=== PATIENT | female | born 1975 | race Two or more races ===

== ENCOUNTER 2019-09-21 16:37 | Emergency (ER) | payer SELFPAY ==
[~2019-09-21] VITALS: Ht 165.1 cm; Wt 56.7 kg
[2019-09-21 16:37] VITALS: BP 110/80
[2019-09-21] MEDS ORDERED: Tetanus/Diptheria/Pertussis IM ONE (17:00)
[2019-09-21] MEDS ORDERED: Lidocaine 1% 10mg/ml/EPI 0.01mg/ml 30ml INJ ONE (17:00)
--- NOTE | 2019-09-21 17:04 | Emergency Room Report ---
History of Present Illness General Chief Complaint: Behavioral Complaint Source: Patient (Slade Donald MD) Present Illness HPI Disclaimer: Please note that this report is being documented using DRAGON technology. This can lead to erroneous entry secondary to incorrect interpretation by the dictating instrument. HPI: After a suicidal attempt. The patient took an unknown amount of Ambien and Xanax several hours prior to arrival. Cannot recall many tablets were in the bottles however police state that bottles were empty on their arrival. She also made a horizontal laceration across her right wrist using a kitchen knife. Bleeding stopped prior to arrival. Able to wrist and all digits. States this was a suicide attempt over severe depression symptoms. She lost her fianc 1 year ago today. She has been dealing with depression since. Cannot recall last tetanus. PMH: Depression PSH: Reviewed Allergies: Benadryl, escitalopram Social Hx: None reported COVID-19 risk:Contact w/high r: No COVID-19 risk:Travel to affect: No Has patient experienced gleason: No (Slade Donald MD) Allergies: Coded Allergies: DIPHENHYDRAMINE (Verified Allergy, Unknown, 09/21/19) ESCITALOPRAM (Verified Allergy, Unknown, 09/21/19) Patient History Last Menstrual Period: Aug 2019 Now: No : 0 Para: 0 (Slade Donald MD) Nursing Documentation-PMH History Of Psychiatric Problem: No - depression (Slaed Donald MD) Review of Systems All Other Systems: negative except mentioned in HPI (Slade Donald MD) Physical Exam Vital Signs Date Time Temp Pulse Resp B/P (MAP) Pulse Ox O2 Delivery O2 Flow Rate FiO2 09/21/19 16:28 98.4 80 18 106/79 (88) 98 Room Air General: Awake and alert, tearful and emotional HEENT: NC/AT. EOMI. Cardiovascular: RRR. S1 and S2 normal. No murmur appreciated Resp: Normal work of breathing. No cough, wheezing or crackles appreciated Abdomen: Abdomen is soft, nondistended. Nontender Skin: 6 cm horizontal laceration across right wrist. Extends into subcutaneous tissue with exposure of muscle tissue but no evidence of muscle injury. MSK: Normal tone and bulk. Moving all extremities. No obvious deformity. Able to flex and extend wrist and all digits. Able to abduct and adduct Neuro: Awake, alert. Emotional, crying. Reports depression and SI (Slade Donald MD) Procedures Laceration/Wound Repair Laceration/Wound Repair : Consent: Verbal Wound Location: upper extremity Wound's Depth, Shape: superficial, linear Wound Length (cm): 7 Wound Explored: clean Irrigated w/ Saline (ccs): 1000 Anesthesia: Lidocaine w/ Epi Volume Anesthetic (ccs): 7 Wound Debrided: None Wound Repaired With: sutures Suture Size/Type: 4:0, proline Number of Sutures: 7 Layer Closure?: Yes Deep Layer Suture Size/Type: 4:0, other - Vicryl Number Deep Layer Sutures: 2 Sterile Dressing Applied?: Yes Patient Tolerated: Well Complications: None (Slade Donald MD) Medical Decision Making Diagnostic Impression: Primary Impression: Suicide attempt Additional Impressions: Wrist laceration Benzodiazepine overdose UTI (urinary tract infection) ER Course 44-year-old female presents for evaluation after a suicide attempt by self- inflicted right wrist laceration as well as ingestion of benzodiazepines. She is awake and alert though emotional. No somnolence. EKG shows normal sinus rhythm without QRS prolongation. We will draw broad labs. Wrist laceration was repaired at bedside after significant debridement, cleaning and irrigation. She required 2 simple interrupted 4-0 Vicryl sutures for deep layer closure and 7 simple interrupted 4-0 Prolene sutures for superficial layer closure. Tolerated procedure well without complications. Labs show possible urinary tract infection and positive for benzodiazepines but otherwise unremarkable. She will be given Keflex for the UTI. She is medically cleared for psychiatric evaluation. Laboratory Tests Test 09/21/19 17:00 09/21/19 17:20 White Blood Count 6.3 K/UL (4.8-10.8) Red Blood Count 4.05 M/UL (4.20-5.40) L Hemoglobin 12.7 G/DL (12.0-16.0) Hematocrit 38.9 % (37.0-47.0) Mean Corpuscular Volume 96 FL (80-99) Mean Corpuscular Hemoglobin 31.3 PG (27.0-31.0) H Mean Corpuscular Hemoglobin Concent 32.6 G/DL (32.0-36.0) Red Cell Distribution Width 12.6 % (11.6-14.8) Platelet Count 255 K/UL (150-450) Mean Platelet Volume 6.1 FL (6.5-10.1) L Neutrophils (%) (Auto) 58.8 % (45.0-75.0) Lymphocytes (%) (Auto) 32.0 % (20.0-45.0) Monocytes (%) (Auto) 5.7 % (1.0-10.0) Eosinophils (%) (Auto) 1.4 % (0.0-3.0) Basophils (%) (Auto) 2.0 % (0.0-2.0) Sodium Level 146 MMOL/L (136-145) H Potassium Level 4.6 MMOL/L (3.5-5.1) Chloride Level 110 MMOL/L (98-107) H Carbon Dioxide Level 28 MMOL/L (21-32) Anion Gap 8 mmol/L (5-15) Blood Urea Nitrogen 14 mg/dL (7-18) Creatinine 0.6 MG/DL (0.55-1.30) Estimated Glomerular Filtration Rate > 60 mL/min (>60) Glucose Level 101 MG/DL (74-106) Calcium Level 8.6 MG/DL (8.5-10.1) Total Bilirubin 1.0 MG/DL (0.2-1.0) Aspartate Amino Transferase (AST) 20 U/L (15-37) Alanine Aminotransferase (ALT) 20 U/L (12-78) Alkaline Phosphatase 43 U/L (46-116) L Total Protein 6.9 G/DL (6.4-8.2) Albumin 3.6 G/DL (3.4-5.0) Globulin 3.3 g/dL Albumin/Globulin Ratio 1.1 (1.0-2.7) Salicylates Level < 0.2 ug/mL (2.8-20) L Acetaminophen Level < 2 MCG/ML (10-30) L Serum Alcohol 4 mg/dL Urine Color Pale yellow Urine Appearance Slightly cloudy Urine pH 5 (4.5-8.0) Urine Specific [place] 1.015 (1.005-1.035) Urine Protein 1+ (NEGATIVE) H Urine Glucose (UA) Negative (NEGATIVE) Urine Ketones Negative (NEGATIVE) Urine Blood 5+ (NEGATIVE) H Urine Nitrite Negative (NEGATIVE) Urine Bilirubin Negative (NEGATIVE) Urine Urobilinogen Normal MG/DL (0.0-1.0) Urine Leukocyte Esterase 1+ (NEGATIVE) H Urine RBC 15-20 /HPF (0 - 2) H Urine WBC 10-15 /HPF (0 - 2) H Urine Squamous Epithelial Cells Many /LPF (NONE/OCC) H Urine Amorphous Sediment Moderate /LPF (NONE) H Urine Bacteria Moderate /HPF (NONE) H Urine HCG, Qualitative Negative (NEGATIVE) Urine Opiates Screen Negative (NEGATIVE) Urine Barbiturates Screen Negative (NEGATIVE) Phencyclidine (PCP) Screen Negative (NEGATIVE) Urine Amphetamines Screen Negative (NEGATIVE) Urine Benzodiazepines Screen Positive (NEGATIVE) H Urine Cocaine Screen Negative (NEGATIVE) Urine Marijuana (THC) Screen Negative (NEGATIVE) (Slade Donald MD) ER Course patient intially seen and evaluated by Dr Donald. please see his note for full history and physical. Suture repair performed. Patient remains neurovascularly intact. 5150 Dr. Bower to evaluate the patient. Please patient is not immediate danger to self. I agree with her assessment. Patient will be cleared. 5150 hold lifted. Will discharge home with wound care instructions. Needs to return for suture removal in 10 days. I will provide referrals Labs Test 09/21/19 17:00 09/21/19 17:20 White Blood Count 6.3 K/UL (4.8-10.8) Red Blood Count 4.05 M/UL (4.20-5.40) Hemoglobin 12.7 G/DL (12.0-16.0) Hematocrit 38.9 % (37.0-47.0) Mean Corpuscular Volume 96 FL (80-99) Mean Corpuscular Hemoglobin 31.3 PG (27.0-31.0) Mean Corpuscular Hemoglobin Concent 32.6 G/DL (32.0-36.0) Red Cell Distribution Width 12.6 % (11.6-14.8) Platelet Count 255 K/UL (150-450) Mean Platelet Volume 6.1 FL (6.5-10.1) Neutrophils (%) (Auto) 58.8 % (45.0-75.0) Lymphocytes (%) (Auto) 32.0 % (20.0-45.0) Monocytes (%) (Auto) 5.7 % (1.0-10.0) Eosinophils (%) (Auto) 1.4 % (0.0-3.0) Basophils (%) (Auto) 2.0 % (0.0-2.0) Sodium Level 146 MMOL/L (136-145) Potassium Level 4.6 MMOL/L (3.5-5.1) Chloride Level 110 MMOL/L (98-107) Carbon Dioxide Level 28 MMOL/L (21-32) Anion Gap 8 mmol/L (5-15) Blood Urea Nitrogen 14 mg/dL (7-18) Creatinine 0.6 MG/DL (0.55-1.30) Estimat Glomerular Filtration Rate > 60 mL/min (>60) Glucose Level 101 MG/DL (74-106) Calcium Level 8.6 MG/DL (8.5-10.1) Total Bilirubin 1.0 MG/DL (0.2-1.0) Aspartate Amino Transf (AST/SGOT) 20 U/L (15-37) Alanine Aminotransferase (ALT/SGPT) 20 U/L (12-78) Alkaline Phosphatase 43 U/L (46-116) Total Protein 6.9 G/DL (6.4-8.2) Albumin 3.6 G/DL (3.4-5.0) Globulin 3.3 g/dL Albumin/Globulin Ratio 1.1 (1.0-2.7) Salicylates Level < 0.2 ug/mL (2.8-20) Acetaminophen Level < 2 MCG/ML (10-30) Serum Alcohol 4 mg/dL Urine Color Pale yellow Urine Appearance Slightly cloudy Urine pH 5 (4.5-8.0) Urine Specific [place] 1.015 (1.005-1.035) Urine Protein 1+ (NEGATIVE) Urine Glucose (UA) Negative (NEGATIVE) Urine Ketones Negative (NEGATIVE) Urine Blood 5+ (NEGATIVE) Urine Nitrite Negative (NEGATIVE) Urine Bilirubin Negative (NEGATIVE) Urine Urobilinogen Normal MG/DL (0.0-1.0) Urine Leukocyte Esterase 1+ (NEGATIVE) Urine RBC 15-20 /HPF (0 - 2) Urine WBC 10-15 /HPF (0 - 2) Urine Squamous Epithelial Cells Many /LPF (NONE/OCC) Urine Amorphous Sediment Moderate /LPF (NONE) Urine Bacteria Moderate /HPF (NONE) Urine HCG, Qualitative Negative (NEGATIVE) Urine Opiates Screen Negative (NEGATIVE) Urine Barbiturates Screen Negative (NEGATIVE) Phencyclidine (PCP) Screen Negative (NEGATIVE) Urine Amphetamines Screen Negative (NEGATIVE) Urine Benzodiazepines Screen Positive (NEGATIVE) Urine Cocaine Screen Negative (NEGATIVE) Urine Marijuana (THC) Screen Negative (NEGATIVE) (Wenceslao Maria MD) EKG Diagnostic Results EKG Time: 17:13 Rate: normal Rhythm: NSR ST Segments: no acute changes Other Impression Sinus rhythm, normal axis, normal intervals, no ST segment changes. Inferior Q waves of undetermined significance. (Slade Donald MD) Rhythm Strip Diag. Results Rhythm Strip Time: 17:13 EP Interpretation: yes Rate: 70s Rhythm: NSR, no PVC's, no ectopy (Slade Donald MD) Reevaluation Time: 18:34 Last Vital Signs Date Time Temp Pulse Resp B/P (MAP) Pulse Ox O2 Delivery O2 Flow Rate FiO2 09/21/19 16:37 98.4 85 18 110/80 98 Room Air Reevaluation Impression Patient became severely agitated when she awoke. She was striking out at staff , spitting, throwing side tables against the ground. She poses a risk to herself and to staff. The patient was restrained for her safety and for staff safety. She was given Haldol for sedation. Will reevaluate frequently. (Slade Donald MD) Status: improved (Wenceslao Maria MD) Disposition: HOME, SELF-CARE Condition: Stable Scripts No Active Prescriptions or Reported Meds Slade Donald MD Sep 21, 2019 17:04 Wenceslao Maria MD Sep 22, 2019 14:33
[2019-09-21 17:14] LABS: EOSINOPHILS % (AUTO) 1.4 % (0.0-3.0); HEMATOCRIT 38.9 % (37.0-47.0); HEMOGLOBIN 12.7 G/DL (12.0-16.0); MEAN CORPUSCULAR VOLUME 96 FL (80-99); MONOCYTES % (AUTO) 5.7 % (1.0-10.0); NEUTROPHILS % (AUTO) 58.8 % (45.0-75.0); PLATELET COUNT 255 K/UL (150-450); RED BLOOD COUNT 4.05 M/UL (4.20-5.40); RED CELL DISTRIBUTION WIDTH 12.6 % (11.6-14.8); WHITE BLOOD COUNT 6.3 K/UL (4.8-10.8)
[2019-09-21 17:24] LABS: ANION GAP 8 mmol/L (5-15); BLOOD UREA NITROGEN 14 mg/dL (7-18); CALCIUM 8.6 MG/DL (8.5-10.1); CARBON DIOXIDE 28 MMOL/L (21-32); CHLORIDE 110 MMOL/L (98-107); CREATININE 0.6 MG/DL (0.55-1.30); POTASSIUM 4.6 MMOL/L (3.5-5.1); SODIUM 146 MMOL/L (136-145)
[2019-09-21 17:30] LABS: ALANINE AMINOTRANSFERASE 20 U/L (12-78); ALBUMIN 3.6 G/DL (3.4-5.0); ALBUMIN/GLOBULIN RATIO 1.1 (1.0-2.7); ALKALINE PHOSPHATASE 43 U/L (46-116); ASPARTATE AMINO TRANSFERASE 20 U/L (15-37)
[2019-09-21] MEDS ORDERED: Lidocaine 1% 10mg/ml/Epi 0.005mg/ml 30ml vial INJ ONE (17:34)
[2019-09-21 17:56] LABS: APPEARANCE,URINE SLIGHTLY CLOUDY; BILIRUBIN, URINE NEGATIVE (NEGATIVE); COLOR,URINE PALE YELLOW; GLUCOSE, URINE (UA) NEGATIVE (NEGATIVE); KETONES,URINE NEGATIVE (NEGATIVE); LEUKOCYTE ESTERASE ,URINE 1+ (NEGATIVE); NITRITE,URINE NEGATIVE (NEGATIVE); PH,URINE 5 (4.5-8.0); PROTEIN,URINE 1+ (NEGATIVE); UROBILINOGEN,URINE NORMAL MG/DL (0.0-1.0)
[2019-09-21] MEDS ORDERED: Cephalexin 500mg cap ORAL ONE (18:15)
[2019-09-21 19:00] VITALS: BP 105/76
[2019-09-21 22:40] VITALS: BP 110/78
[2019-09-22 03:40] VITALS: BP 106/67
[2019-09-22 06:57] VITALS: BP 103/66
[2019-09-22 07:30] VITALS: BP 122/71
[2019-09-22] MEDS ORDERED: Morphine Sulfate 4mg/ml Inj (IV USE ONLY) IVP ONE (08:15)
[2019-09-22 09:30] VITALS: BP 118/79
[2019-09-22 11:30] VITALS: BP 124/68
[2019-09-22] MEDS ORDERED: BACITRACIN15 GM TOPIC (14:35)
[2019-09-22] MEDS ORDERED: CEPHALEXIN500 MG ORAL (14:35)
[2019-09-22] MEDS ORDERED: TYLENOL EXTRA500 MG ORAL (14:35)
[2019-09-22 14:49] VITALS: BP 131/75
--- NOTE | 2019-09-25 13:14 | Consultation ---
DATE OF CONSULTATION: 09/22/2019 HISTORY OF PRESENT ILLNESS: The patient is a 44-year-old [place] lady who has stated that she has been having a history of depression, anxiety. She lost her two years ago, has been not able to get over his . The patient is depressed. The patient does not have a psychiatrist. The patient lacerated her right wrist with a knife. She was brought in, had stitches. The patient apparently told her [id number] that she has cut herself and needs help. The patient has poor insight and judgment into her mental condition. PAST MEDICAL HISTORY: Nonsignificant. ALLERGIES: 1. Lexapro. 2. Diphenhydramine. SUBSTANCE ABUSE HISTORY: She denies any illicit drug use or alcohol. Toxicology is positive for benzodiazepines. MENTAL STATUS EXAMINATION: Alert and oriented times self, place, situation, and date. Mood is depressed. Affect is constricted. Congruent with mood. Thought process is concrete. Thought content, no suicidal or homicidal ideation. Cognition intact. Insight and judgment is limited. ASSESSMENT: Bourbon I Major depressive disorder. Bourbon II Rule out borderline personality. Bourbon III Cut on right wrist. Bourbon IV Moderate. Bourbon V 50 PLAN: 1. The patient is not in any danger to self or others. 2. The patient would like to be discharged. 3. We will lift the hold 5150. 4. Refer the patient to psychiatrist outside. 5. We will notify the [id number]. Bailey Bower M.D. DR: Mike JOB#: [id number] CC: [id number]
== END 2019-09-22 14:52 | disposition home or self-care (01) ==
LOC: EDBD 16:37 → EMR 17:18
DX: S61.511A Laceration without foreign body of right wrist, initial encounter (principal); T42.4X2A Poisoning by benzodiazepines, intentional self-harm, initial encounter; X78.1XXA Intentional self-harm by knife, initial encounter; Y93.9 Activity, unspecified; Y92.9 Unspecified place or not applicable; N39.0 Urinary tract infection, site not specified; Z88.8 Allergy status to other drugs, medicaments and biological substances
CPT/HCPCS: 12032; 36415; 80053; 80307; 81003; 81025; 85025; 87086; 90471; 90715; 93005; 96374; 99285; G0480; J2270